=== PATIENT | male | born 1970 | race Caucasian/White ===

== ENCOUNTER 2018-02-28 10:20 | Day surgery (SDC) | payer BC ==
--- NOTE | 2018-02-28 10:59 | EDM.PDOC ---
ED HPI GENERAL MEDICAL PROBLEM - General Chief Complaint: Upper Extremity Injury/Pain Stated Complaint: L WRIST INJURY Time Seen by Provider: 02/28/18 10:59 - History of Present Illness INITIAL COMMENTS - FREE TEXT/NARRATIVE: 47-year-old male presents emergency room with the left forearm injury. Patient slipped on the ice we'll try to walk his dog landed hard on his outstretched arm. Patient has significant discomfort from this. The patient has some intermittent numbness to the area below the level of the injury. Patient denies any other injuries he did not hit his head. Left Wrist Pain Score (Numeric/FACES): 10 - Related Data Allergies Allergy/AdvReac Type Severity Reaction Status Date / Time No Known Allergies Allergy Verified 02/28/18 10:37 Past Medical History - Past Health History Medical/Surgical History: Denies Medical/Surgical History Social & Family History - Tobacco Use Smoking Status *Q: Current Every Day Smoker Years of Tobacco use: 33 Packs/Tins Daily: 1 Used Tobacco, but Quit: No - Caffeine Use Caffeine Use: Reports: Coffee, Energy Drinks - Recreational Drug Use Recreational Drug Use: No Review of Systems - Review of Systems Review Of Systems: See Below Constitutional: Reports: No Symptoms Respiratory: Reports: No Symptoms Cardiovascular: Reports: No Symptoms GI/Abdominal: Reports: No Symptoms ED EXAM, GENERAL - Physical Exam Exam: See Below Exam Limited By: No Limitations General Appearance: Alert, Other (She was mildly anxious and really wants to go out and have a cigarette) Head: Atraumatic, Normocephalic Neck: Normal Inspection, Supple, Non-Tender, Full Range of Motion Respiratory/Chest: No Respiratory Distress, Lungs Clear, Decreased Breath Sounds Cardiovascular: Regular Rate, Rhythm, No Edema, No Murmur Extremities: Other (Examination left forearm shows obvious deformity in the distal forearm he has no discomfort around the elbow or proximal forearm the hand is nontender he has some distal numbness in his fingers he cannot isolate if any murmurs is worse than the others it's not a complete numbness is more tingly decreased sensation) Neurological: Alert, Oriented, Normal Cognition Course - Vital Signs Last Recorded V/S: Last Vital Signs Temp 36.4 C 02/28/18 10:48 Pulse 83 02/28/18 10:48 Resp 18 02/28/18 10:48 BP 165/107 H 02/28/18 10:48 Pulse Ox 93 L 02/28/18 10:48 - Orders/Labs/Meds Orders: Active Orders 24 hr Category Date Time Status Forearm 2V Lt [CR] Stat Exams 02/28/18 11:21 Ordered Wrist Comp Min 3V Lt [CR] Stat Exams 02/28/18 11:21 Taken Meds: Medications Discontinued Medications Generic Name Dose Route Start Last Admin Trade Name Ivan PRN Reason Stop Dose Admin Fentanyl 100 mcg 02/28/18 11:21 02/28/18 11:41 Sublimaze IVPUSH 02/28/18 11:22 100 mcg ONETIME ONE Administration - Re-Assessments/Exams Free Text/Narrative Re-Assessment/Exam: 02/28/18 12:51 Patient has a distal radius fracture 30 dorsal angulation and partial dorsal displacement. Case discussed with Dr. Neal who would like to proceed with a closed reduction in the OR. Will call anesthesia. In addition to the wrist x- rays I did want to forearm the patient declined this. Departure - Departure Time of Disposition: 12:53 Disposition: Admitted As Inpatient 65 Clinical Impression: Distal radius fracture, left - Discharge Information Referrals: PCP,None [Primary Care Provider] - Forms: ED Department Discharge - My Orders Last 24 Hours: My Active Orders 02/28/18 11:21 Forearm 2V Lt [CR] Stat Wrist Comp Min 3V Lt [CR] Stat - Assessment/Plan Last 24 Hours: My Active Orders 02/28/18 11:21 Forearm 2V Lt [CR] Stat Wrist Comp Min 3V Lt [CR] Stat
[2018-02-28] MEDS ORDERED: fentaNYL 100 MCG/2 ML SDV IVPUSH ONE (11:21)
--- NOTE | 2018-02-28 12:20 | PCM.PREANE ---
Preanesthetic Assessment - Anesthesia/Transfusion/Family Hx Anesthesia History: Prior Anesthesia Without Reaction Family History of Anesthesia Reaction: No Transfusion History: No Prior Transfusion(s) Intubation History: Unknown - Review of Systems General: No Symptoms Pulmonary: No Symptoms (smoker: 1ppd times 33 years/ETOH: rarely/), Cough Cardiovascular: No Symptoms (Hypertension on losartan/nipple piercing noted, patient refuses to remove.), Dyspnea on Exertion Gastrointestinal: No Symptoms (GERD occasionally) Neurological: No Symptoms, Tingling (left hand tingling/affected hand) Other: Reports: None - Physical Assessment NPO Status Date: 02/28/18 NPO Status Time: 09:30 (water) Pulse: 83 O2 Sat by Pulse Oximetry: 93 Respiratory Rate: 18 Blood Pressure: 165/107 Temperature: 36.4 C Vital Signs: Last Vital Signs Temp 36.4 C 02/28/18 10:48 Pulse 83 02/28/18 10:48 Resp 18 02/28/18 10:48 BP 165/107 H 02/28/18 10:48 Pulse Ox 93 L 02/28/18 10:48 Height: 1.8 m Weight: 117.934 kg ASA Class: 2E Mental Status: Alert & Oriented x3 Airway Class: Mallampati = 3 Dentition: Reports: Dentures (upper), Missing Tooth/Teeth, Caries Thyro-Mental Finger Breadths: 3 Mouth Opening Finger Breadths: 3 ROM/Head Extension: Full Lungs: Clear to Auscultation, Decreased Breath Sounds Cardiovascular: Regular Rate, Regular Rhythm, No Murmurs - Lab Values: All labs reviewed and noted and within acceptable ranges to proceed with scheduled procedure. - Imaging/EKG Impressions: EKG: SR rate=79 - Allergies Allergies/Adverse Reactions: Allergies Allergy/AdvReac Type Severity Reaction Status Date / Time No Known Allergies Allergy Verified 02/28/18 10:37 - Anesthesia Plan Pre-Op Medication Ordered: None - Acknowledgements Anesthesia Type Planned: MAC Pt an Appropriate Candidate for the Planned Anesthesia: Yes Alternatives and Risks of Anesthesia Discussed w Pt/Guardian: Yes Pt/Guardian Understands and Agrees with Anesthesia Plan: Yes PreAnesthesia Questionnaire - Past Health History Medical/Surgical History: Denies Medical/Surgical History - SUBSTANCE USE Smoking Status *Q: Current Every Day Smoker Tobacco Use Within Last Twelve Months: Cigarettes Recreational Drug Use History: No - CURRENT (IN HOUSE) MEDS Current Meds: Current Medications Discontinued Medications Fentanyl (Sublimaze) 100 mcg IVPUSH ONETIME ONE Stop: 02/28/18 11:22 Last Admin: 02/28/18 11:41 Dose: 100 mcg
[2018-02-28] MEDS ORDERED: Albuterol 0.083% 2.5 MG/3 ML Neb Soln NEB ONE (12:33)
[2018-02-28] MEDS ORDERED: fentaNYL 100 MCG/2 ML SDV ONE (12:51)
[2018-02-28] MEDS ORDERED: Midazolam 1 MG/ML 2 ML SDV ONE ×2 (12:51→12:58)
[2018-02-28] MEDS ORDERED: Lidocaine 1% 6 ML ONE (12:57)
[2018-02-28] MEDS ORDERED: Lactated Ringers 2,000 ML ONE (12:57)
[2018-02-28] MEDS ORDERED: Ondansetron 4 MG/2 ML SDV ONE (12:57)
[2018-02-28] MEDS ORDERED: HYDROmorphone 0.5 MG/0.5 ML Syringe ONE (12:58)
[2018-02-28] MEDS ORDERED: Propofol 200 MG/20 ML SDV ONE ×2 (12:58→13:34)
[2018-02-28] MEDS ORDERED: Ketamine 500 mg/10 ML MDV ONE (12:59)
[2018-02-28] MEDS ORDERED: Acetaminophen/oxyCODONE 325-5 MG Tab PO PRN (13:09)
[2018-02-28] MEDS ORDERED: Ondansetron 4 MG/2 ML SDV IVPUSH PRN ×2 (13:09→13:53)
[2018-02-28] MEDS ORDERED: Ketorolac 30 MG/ML SDV IVPUSH PRN (13:09)
[2018-02-28] MEDS ORDERED: Morphine 15 MG Tab.ER PO SCH (13:15)
--- NOTE | 2018-02-28 13:52 | HP ---
DATE OF ADMISSION: 02/28/2018 HISTORY OF PRESENT ILLNESS: This is first orthopedic outpatient admission for surgery for this 47-year-old male, who is being scheduled for surgery from the emergency room where the patient is being scheduled for an outpatient surgery for closed reduction of a displaced distal radius fracture. The patient suffered this injury earlier today on 02/28/2018, has noted severe pain in the wrist area, was seen in the emergency room, had positive numbness and tingling in his fingers and orthopedic consultation was called for with evaluation of the x-ray showed significant displacement. The patient is now being scheduled for the closed reduction of the fracture and application of a short-arm cast. The procedure outlined to him and also the prognosis. He understands and has consented to it. ALLERGIES: No known drug allergies. PAST MEDICAL HISTORY: He has been a patient 47-year-old with a history of high blood pressure. CURRENT MEDICATIONS: High blood pressure medications. PAST SURGICAL HISTORY: Positive. He has had no anesthesia complications. SOCIAL HISTORY: The patient has an approximately 1/2 to 2 pack smoker per day. He is notes his alcohol intake is rare. PHYSICAL EXAMINATION: GENERAL: Today reveals a well-developed, well-nourished, 47-year-old male, in moderate distress. HEAD, EYES, EARS, NOSE, THROAT: Normocephalic. NECK: Supple. CHEST: Clear. COR: Regular rhythm and rate. ABDOMEN: Soft. : Intact. EXTREMITIES: Examination of the left wrist reveals positive swelling with dorsal angulation of the wrist, typical gooseneck deformity. The patient has severe pain on direct pressure. Circulation is intact to the fingers. He has positive motor function. There is also decreased sensation to the middle portion of the ring and index finger. X-RAYS: X-rays reveal a dorsally displaced distal radius ulna fracture. PLAN: Plan is for the patient to undergo a closed reduction. MMPETER /[id number]
[2018-02-28] MEDS ORDERED: fentaNYL 100 MCG/2 ML SDV IVPUSH PRN (13:53)
[2018-02-28] MEDS ORDERED: diphenhydrAMINE 50 MG/ML SDV IVPUSH PRN (13:53)
--- NOTE | 2018-02-28 14:10 | PCM48HPAN ---
Post Anesthesia Note - EVALUATION WITHIN 48HRS OF ANESTHETIC Vital Signs in Normal Range: Yes Patient Participated in Evaluation: Yes Respiratory Function Stable: Yes Airway Patent: Yes Cardiovascular Function Stable: Yes Hydration Status Stable: Yes Pain Control Satisfactory: Yes Nausea and Vomiting Control Satisfactory: Yes Mental Status Recovered: Yes Pulse Rate: 83 SaO2: 93 (2Lpm nasal cannula) Resp Rate: 18 Temperature: 36.4 C Blood Pressure: 165/107 Pulse Rate: 112
--- NOTE | 2018-02-28 14:25 | CR ---
Left wrist: 9 fluoroscopic spot views of the left wrist are obtained utilizing C-arm device. Comparison: Previous left wrist study performed earlier on the same day (11:31 AM). Distal radial fracture is noted. Final 2 films shows near anatomic alignment. Fiberglass cast is present. No additional abnormality is seen. Fluoroscopy time given as 25.8 seconds. Impression: 1. Reduction of previous displaced radial fracture with final film showing near anatomic alignment. Fiberglas cast is in place. Diagnostic code #2
--- NOTE | 2018-02-28 14:27 | CR ---
Left wrist: Four views of the left wrist were obtained. Comparison: No prior study. Distal radial fracture is seen through the metaphysis. Posterior impaction is seen with posterior tilt of the distal radial articular margin. No additional fracture or other bony abnormality is seen. Soft tissue swelling is noted. Impression: 1. Distal radial fracture with posterior impaction causing posterior tilt of the distal radial articular margin. 2. Soft tissue swelling. Diagnostic code #3
--- NOTE | 2018-03-02 08:12 | CONS ---
CONSULTING PHYSICIAN: Jordan Neal MD DATE OF CONSULTATION: 02/28/2018 ORTHOPEDIC CONSULTATION HISTORY: Orthopedic consultation called for evaluation of severe left wrist pain. The patient suffered a fall earlier today causing injury to the wrist, was seen in the emergency room, had x-rays taken. Emergency room physician diagnosed a fracture of the distal left wrist area, and an orthopedic consultation was called for. The patient notes that the pain has been quite severe in the wrist region. He also notes numbness and tingling to his fingers, which has gradually increased since he has been in the emergency room. PHYSICAL EXAMINATION: Examination in the emergency room reveals a severe pain to pressure palpation of the wrist area. Positive dorsal angulation noted. Circulation intact to the fingers. The patient has positive slight decreased sensation to the middle and portion of the ring finger noted. LABORATORY DATA: The x-rays were reviewed, which shows a displaced, dorsally angulated, greater than 30 degrees distal radius-ulna fracture. IMPRESSION: Displaced distal radius-ulna fracture. PLAN: Plan will be for the patient undergo a surgical reduction with anesthesia. Procedure was outlined to him. He understands procedure, has consented to it. MMODAL /[id number]
--- NOTE | 2018-03-02 08:12 | OR ---
DATE OF OPERATION: 02/28/2018 SURGEON: Jordan Neal MD PREOPERATIVE DIAGNOSIS: Displaced distal left radius ulna fracture with median nerve contusion. POSTOPERATIVE DIAGNOSIS: Displaced distal left radius ulna fracture with median nerve contusion. ANESTHESIA: General. OPERATION PERFORMED: 1. Closed reduction of distal left radius ulna fracture. 2. Application of short-arm cast. DESCRIPTION OF PROCEDURE: The patient was taken to the operating room in supine position. He was placed under a heavy sedation anesthesia, where the patient was then had his arm placed in a fingertrap traction unit. The traction unit was in place and weight was added to the upper extremity, gradually increasing to approximately 15 pounds. Once 15 pounds was reached on the fluoroscopy, the fracture site was distracted, after about 5-7 minutes of traction. Once the distraction was seen, the operation proceeded with manipulation of the fracture bone back over onto the end of the radius, correcting the deformity that was present. The x-rays and fluoroscopy showed good lateral reduction, also AP reduction. Once that was accomplished the weight was removed. The fracture again was rechecked to make sure held in place and then a short-arm cast was applied. After the short-arm cast was applied, the cast was then trimmed. He tolerated the procedure well and left the operating room in stable condition to his room for recovery. ESTIMATED BLOOD LOSS: MMODAL /[id number]
== END 2018-02-28 15:07 | disposition home or self-care (01) ==
LOC: JD.ED 10:20 → JD.SDS 12:39
PROVIDERS: ATTEND Specialist
DX: S52.602A Unspecified fracture of lower end of left ulna, initial encounter for closed fracture (principal); S52.502A Unspecified fracture of the lower end of left radius, initial encounter for closed fracture; S64.12XA Injury of median nerve at wrist and hand level of left arm, initial encounter; I10 Essential (primary) hypertension; F17.210 Nicotine dependence, cigarettes, uncomplicated; Z79.899 Other long term (current) drug therapy; W19.XXXA Unspecified fall, initial encounter
CPT/HCPCS: 25605; 36415; 73110; 76000; 80048; 93005; 94640; 99285; A9270; J1170; J1885; J2250; J2405; J2704; J3010; J7120; 96374; 99284; J2001

== ENCOUNTER 2021-03-26 16:37 | Emergency (ER) | payer BC ==
[2021-03-26] MEDS ORDERED: Aspirin 81 MG Tab.Chew PO ONE (17:14)
[2021-03-26] MEDS ORDERED: Sodium Chloride 0.9% 10 ML Syringe FLUSH PRN (17:14)
== END 2021-03-26 19:57 | disposition home or self-care (01) ==
LOC: JD.ED 16:37
DX: R07.89 Other chest pain (principal); I10 Essential (primary) hypertension; F17.210 Nicotine dependence, cigarettes, uncomplicated; Z86.16 Personal history of COVID-19; Z79.899 Other long term (current) drug therapy
CPT/HCPCS: 36415; 71045; 80053; 83735; 84484; 85025; 85379; 85610; 93005; 99285; A9270; 93010

== ENCOUNTER → 2022-09-11 | Day surgery (SDC) | payer BC ==
[~2022-09-11] MED LIST: Acetaminophen/oxyCODONE 325-5 MG Tab PO PRN; Albuterol/Ipratropium 3.0-0.5 MG/3 ML Neb Soln NEB STA; Bupivacaine 0.5%/EPINEPHrine 1:200,000 50 ML MDV ONE; Dexamethasone 4 MG/ML 5 ML MDV ONE; EPINEPHrine 1 MG/ML SDV ONE; HYDROmorphone 0.5 MG/0.5 ML Syringe IVPUSH PRN; Ketorolac 30 MG/ML SDV ONE; Lactated Ringers 1,000 ML IV SCH; Lidocaine 1% 2 ML ONE; Lidocaine 1% 30 ML SDV ONE; Midazolam 1 MG/ML 2 ML SDV ONE; Ondansetron 4 MG/2 ML SDV IVPUSH PRN; Ondansetron 4 MG/2 ML SDV ONE; Propofol 200 MG/20 ML SDV ONE; Rocuronium 50 MG/5 ML Vial ONE; Sodium Chloride 0.9% 10 ML Syringe FLUSH PRN; Sodium Chloride 0.9% 10 ML Syringe FLUSH SCH; Sugammadex Sodium 200 MG/2 ML VIAL ONE; ceFAZolin 2 GM Vial ONE; fentaNYL 100 MCG/2 ML SDV IVPUSH PRN; fentaNYL 250 MCG/5 ML SDV ONE
== END | disposition home or self-care (01) ==
LOC: JD.SDS 10:01
PROVIDERS: ATTEND Surgery
DX: K40.20 Bilateral inguinal hernia, without obstruction or gangrene, not specified as recurrent (principal); I10 Essential (primary) hypertension; E11.9 Type 2 diabetes mellitus without complications; E78.2 Mixed hyperlipidemia; E78.00 Pure hypercholesterolemia, unspecified; M54.9 Dorsalgia, unspecified; G89.29 Other chronic pain; E66.9 Obesity, unspecified; F17.210 Nicotine dependence, cigarettes, uncomplicated; Z86.16 Personal history of COVID-19; Z68.28 Body mass index [BMI] 28.0-28.9, adult; Z79.899 Other long term (current) drug therapy
CPT/HCPCS: 49650; A9270; J0171; J0690; J1100; J1885; J2250; J2405; J2704; J3010; J3490; J7120; C1727; C1781; J7620-GY